=== PATIENT | female | born 1985 | race Caucasian/White ===

== ENCOUNTER 2022-12-30 17:18 | Emergency (ER) | payer MEDICAID ==
[~2022-12-30] VITALS: Ht 172.7 cm; Wt 125.0 kg
[2022-12-30 21:58] VITALS: BP 154/104
[2022-12-30] MEDS ORDERED: D-ME118S48 PO (21:59)
== END 2022-12-30 22:27 | disposition home or self-care (01) ==
LOC: ER 17:18
DX: B34.9 Viral infection, unspecified (principal); I10 Essential (primary) hypertension; E11.9 Type 2 diabetes mellitus without complications; Z88.0 Allergy status to penicillin
CPT/HCPCS: 99281

== ENCOUNTER 2024-03-01 02:34 | Emergency (ER) | payer MEDICAID ==
[~2024-03-01] VITALS: Ht 175.3 cm; Wt 156.2 kg
[~2024-03-01 02:34] MED LIST: BROM118S47 PO
[2024-03-01 03:19] VITALS: O2SAT 96
[2024-03-01] MEDS: HYDROCODONE/ACETAMINOPHEN 5/325MG TABLET PO ONE (06:15)
[2024-03-01] MEDS: KETOROLAC 60MG/2ML VIAL IM ONE (06:15)
[2024-03-01] MEDS ORDERED: NAPR-681 MT (06:29)
[2024-03-01 07:30] VITALS: BP 139/74; PULSE 77; RESP 16; TEMP 98.5
== END 2024-03-01 07:30 | disposition home or self-care (01) ==
LOC: ER 02:34
DX: M25.531 Pain in right wrist (principal)
CPT/HCPCS: 99283; 81025; 73110; 96372; J1885